=== PATIENT | male | born 1975 ===

== ENCOUNTER 2022-11-17 09:15 | Emergency (ER) | payer OTHER ==
[2022-11-17 11:54] LABS: POTASSIUM,K 4.1 mmol/L (3.5-5.1)
[2022-11-17] MEDS ORDERED: Apixaban 5 MG Tab PO STA (12:59)
== END 2022-11-17 13:36 | disposition home or self-care (01) ==
LOC: MW.ED 09:15
DX: I82.431 Acute embolism and thrombosis of right popliteal vein (principal); Z79.01 Long term (current) use of anticoagulants
CPT/HCPCS: 36415; 80053; 85025; 93971; 99284; A9270; 99283